=== PATIENT | male | born 1950 | race Caucasian/White ===

== ENCOUNTER 2017-06-04 10:58 | Day surgery (SDC) | payer OTHER ==
[~2017-06-04 10:58] MED LIST: Buffered Lidocaine 0.9% SYRIN* 5 ML/SYR SYRINGE INTRADERM ONE; Famotidine IV* 10 MG/ML 2 ML (20 mg) IV ONE; Metoclopramide TAB* 10 MG PO ONE
[2017-06-04] MEDS ORDERED: Metoclopramide TAB* 10 MG ONE (12:11)
[2017-06-04] MEDS ORDERED: Famotidine IV* 10 MG/ML 2 ML (20 mg) ONE (12:11)
[2017-06-04] MEDS ORDERED: Buffered Lidocaine 0.9% SYRIN* 5 ML/SYR SYRINGE ONE (12:19)
[2017-06-04] MEDS ORDERED: Lidocaine 2% PF * 5 ML VIAL ONE (13:18)
[2017-06-04] MEDS ORDERED: KETAMINE HCL* 50 MG/ML 10 ML VIAL ONE (13:18)
[2017-06-04] MEDS ORDERED: Propofol* 10 MG/ML 20 ML BTL IV PUSH ONE (13:18)
[2017-06-04] MEDS ORDERED: Midazolam* 1 MG/ML 2 ML VIAL (2 MG) ONE (13:18)
[2017-06-04] MEDS ORDERED: Dexamethasone IV* 4 MG/ML 1 ML (4 MG) ONE (13:18)
[2017-06-04] MEDS ORDERED: Ondansetron INJ* 2 MG/ML VIAL ONE (13:18)
[2017-06-04] MEDS ORDERED: fentaNYL* 50 MCG/ML 2 ML VIAL (100 MCG VIAL) ONE (13:18)
[2017-06-04] MEDS ORDERED: Oxymetazoline 0.05% NASAL SPR* 15 ML BTL ONE (13:39)
[2017-06-04] MEDS ORDERED: Lidocaine 1% MPF wEPI 200,000* 30 ML SDV ONE (13:39)
[2017-06-04] MEDS ORDERED: Lidocaine 4% TOPICAL* 50 ML TOP.SOLN ONE (13:39)
[2017-06-04] MEDS ORDERED: Mivacurium Chloride* 20 MG/10 ML VIAL IV ONE (13:45)
[2017-06-04] MEDS ORDERED: EPHEDrine (Pressors)* 50 MG/ML VIAL ONE (14:09)
[2017-06-04] MEDS ORDERED: Ondansetron INJ* 2 MG/ML VIAL IV PRN (14:12)
[2017-06-04] MEDS ORDERED: oxyCODONE/Acetamin 5/325 MG* TAB PO PRN (14:12)
[2017-06-04] MEDS ORDERED: Naloxone* 0.4 MG/ML 1 ML VIAL IV PRN (14:12)
[2017-06-04] MEDS ORDERED: fentaNYL* 50 MCG/ML 2 ML VIAL (100 MCG VIAL) IV PRN (14:12)
[2017-06-04 16:28] VITALS: BP 122/72
--- NOTE | 2017-06-05 01:09 | OP ---
DATE OF OPERATION: 06/04/17 - [facility] DATE OF : 54 SURGEON: Christiano Patricia MD ANESTHESIA: General endotracheal anesthesia. PRE-OP DIAGNOSIS: Chronic pansinusitis with nasal polyposis. POST-OP DIAGNOSIS: Chronic pansinusitis with nasal polyposis. OPERATIVE PROCEDURE: Endoscopic sinus surgery with nasal polypectomy, maxillary antrostomy, total ethmoidectomy. COMPLICATIONS: None. DISPOSITION: Good. SPECIMENS: Left and right sinus contents. I also took cultures from the maxillary sinuses bilaterally. DESCRIPTION OF PROCEDURE: The patient was taken to the operating room and placed in the supine position on the operating table. General anesthesia was induced and orotracheally intubated. His nose were packed bilaterally with cottonoids impregnated with oxymetazoline and 4% lidocaine. He was draped for the surgery. The packs were removed and he had obstructing polyps in his ostiomeatal units bilaterally and he had these in his middle turbinates. Lateral lepe were injected with 1% lidocaine with 1:100,000 epinephrine. I debrided the polyps with the Blakesley's and he had blockage of his maxillary sinuses. Once entered, pus drained which I suctioned. I used the debrider to widen the ostium and to allow flow. I irrigated the sinus out with saline. Polyps that were in the anterior and posterior ethmoid regions were removed. Polyps in the frontal recess were removed and went back and removed some polyps protruding from the sphenoid sinus. Ostium was opened. Stammberger Sinu-Foam was placed bilaterally. Patient tolerated the procedure well. No complications , transferred to the recovery room in stable condition. [id number]/[facility] #: [id number] [facility]
== END 2017-06-04 16:29 | disposition home or self-care (01) ==
LOC: OR 10:58
PROVIDERS: ATTEND Otolaryngology
DX: J32.4 Chronic pansinusitis (principal); J33.0 Polyp of nasal cavity; I73.00 Raynaud's syndrome without gangrene; K22.0 Achalasia of cardia; M19.90 Unspecified osteoarthritis, unspecified site; Z87.891 Personal history of nicotine dependence
CPT/HCPCS: 87070; 87073; 87076; 87077; 87186; 87205; 88305; A9270-GY; J1100; J2001; J2250; J2405; J2704; J3010

== ENCOUNTER 2018-09-06 06:19 | Day surgery (SDC) | payer MEDICARE, OTHER ==
[~2018-09-06 06:19] MED LIST changes: -Buffered Lidocaine 0.9% SYRIN* 5 ML/SYR SYRINGE INTRADERM ONE; +Buffered Lidocaine 1% SYRIN* 1 ML/SYRINGE INTRADERM ONE; -Famotidine IV* 10 MG/ML 2 ML (20 mg) IV ONE; -Metoclopramide TAB* 10 MG PO ONE
[2018-09-06] MEDS ORDERED: Midazolam* 1 MG/ML 2 ML VIAL (2 MG) ONE ×2 (07:20→07:36)
[2018-09-06 08:49] VITALS: BP 100/52
--- NOTE | 2018-09-06 09:39 | OP ---
DATE OF OPERATION/DATE OF DICTATION: 09/06/2018 - [facility] DATE OF : 1950. SURGEON: Dr. Matthew Roland. APPLICATIONS SALES CONSULTANT: None. ANESTHESIA: Topical with intravenous sedation. PRE-OP DIAGNOSIS: Cataract, left eye. POST-OP DIAGNOSIS: Cataract, left eye. OPERATIVE PROCEDURE: Phacoemulsification and cataract extraction with posterior chamber intraocular lens implant, left eye. COMPLICATIONS: None. BLOOD LOSS: None. DESCRIPTION OF PROCEDURE: The patient was brought to the operating room and received a small amount of intravenous sedation. A drop of Tetracaine was placed in his left eye. He was prepped and draped in the usual sterile fashion for ophthalmic surgery and attention was directed to the left eye where a speculum was placed. A paracentesis was created at the 5 o'clock position and 0.1 cc of 1 percent preservative-free Lidocaine was injected into the anterior chamber followed by DisCoVisc. The eye was digitally stabilized while a 2.75 mm keratome was used to create a triplanar clear corneal incision at the 3 o' clock position. A continuous curvilinear capsulorrhexis was created with a cystotome and Utrata forceps. BSS on a cannula was used to hydrodissect the lens from the capsule. Phacoemulsification was performed in a divide-and- conquer technique to create four fragments which were removed. Residual cortical material was removed with irrigation and aspiration. DisCoVisc was used to inflate the capsular bag and an AUOOTO 19.5 diopter lens was folded and inserted into the capsular bag. DisCoVisc was removed using irrigation and aspiration. BSS on a cannula was used to hydrate the corneal stroma and seal the wound. At the end of the case the pupil was round and the lens was centered. The eye was of normal pressure and the wound was water tight. The speculum was removed and topical Maxitrol ointment was placed on the surface of the eye. The eye was closed, patched and shielded and the patient was sent to the recovery room in stable condition with post operative instructions and follow-up appointment given. [id number]/[facility] #: [id number] MTDD
[2018-09-06] MEDS ORDERED: Lidocaine 1%* 5 ML VIAL ONE (13:52)
[2018-09-06] MEDS ORDERED: Phenylephrine OPHTH SOL 2.5%* 2 ML ONE (13:52)
[2018-09-06] MEDS ORDERED: Cyclopentolate 1% OPTH.SOL* 2 ML BTL ONE (13:52)
[2018-09-06] MEDS ORDERED: Neomycin/Polymy/Dex OPHTH.OIN* 3.5 GM ONE (13:52)
[2018-09-06] MEDS ORDERED: Tropicamide 1% OPTH.SOL* BTL ONE (13:52)
[2018-09-06] MEDS ORDERED: Ketorolac 0.5% OPHTH (NF) 0.5 % 5 ML BTL ONE (13:52)
[2018-09-06] MEDS ORDERED: Tetracaine 0.5% OPTH.SOL 4 ML* 1 DROP BTL ONE (13:52)
== END 2018-09-06 08:13 | disposition home or self-care (01) ==
LOC: OREAST 06:19
PROVIDERS: ATTEND Ophthalmology
DX: H25.12 Age-related nuclear cataract, left eye (principal); I73.00 Raynaud's syndrome without gangrene
CPT/HCPCS: A9270-GY; J2250; V2632

== ENCOUNTER 2018-09-13 11:24 | Day surgery (SDC) | payer MEDICARE, OTHER ==
[~2018-09-13 11:24] MED LIST changes: +Acetaminophen TAB* 325 MG PO PRN
[2018-09-13] MEDS ORDERED: fentaNYL* 50 MCG/ML 2 ML VIAL (100 MCG VIAL) ONE (13:01)
[2018-09-13] MEDS ORDERED: Midazolam* 1 MG/ML 2 ML VIAL (2 MG) ONE (13:02)
[2018-09-13] MEDS ORDERED: Neomycin/Polymy/Dex OPHTH.OIN* 3.5 GM ONE (13:25)
[2018-09-13] MEDS ORDERED: Tetracaine 0.5% OPTH.SOL 4 ML* 1 DROP BTL ONE (13:25)
[2018-09-13] MEDS ORDERED: Tropicamide 1% OPTH.SOL* BTL ONE (13:25)
[2018-09-13] MEDS ORDERED: Ketorolac 0.5% OPHTH (NF) 0.5 % 5 ML BTL ONE (13:25)
[2018-09-13] MEDS ORDERED: Cyclopentolate 1% OPTH.SOL* 2 ML BTL ONE (13:25)
[2018-09-13] MEDS ORDERED: Phenylephrine OPHTH SOL 2.5%* 2 ML ONE (13:25)
[2018-09-13] MEDS ORDERED: Lidocaine 1%* 5 ML VIAL ONE (13:25)
[2018-09-13 13:59] VITALS: BP 112/70
--- NOTE | 2018-09-13 16:37 | OP ---
DATE OF OPERATION: 09/13/18 [facility] DATE OF : 54 SURGEON: Dr. Matthew Roland. TWISTER FRAME TENDER: None. ANESTHESIA: Topical with intravenous sedation. PRE-OP DIAGNOSIS: Cataract, right eye. POST-OP DIAGNOSIS: Cataract, right eye. OPERATIVE PROCEDURE: Phacoemulsification and cataract extraction with posterior chamber intraocular lens implant, right eye. COMPLICATIONS: None. BLOOD LOSS: None. DESCRIPTION OF PROCEDURE: The patient was brought to the operating room and received a small amount of intravenous sedation. A drop of tetracaine was placed in his right eye. He was prepped and draped in the usual sterile fashion for ophthalmic surgery and attention was directed to the right eye where a speculum was placed. A paracentesis was created at the 11 o'clock position and 0.1 cc of 1 percent preservative-free Lidocaine was injected into the anterior chamber followed by DisCoVisc. The eye was digitally stabilized while a 2.75 mm keratome was used to create a triplanar clear corneal incision at the 9 o'clock position. A continuous curvilinear capsulorrhexis was created with a cystotome and Utrata forceps. BSS on a cannula was used to hydrodissect the lens from the capsule. Phacoemulsification was performed in a divide-and- conquer technique to create four fragments which were removed. Residual cortical material was removed with irrigation and aspiration. DisCoVisc was used to inflate the capsular bag and an AU00T0 19.5 diopter lens was folded and inserted into the capsular bag. DisCoVisc was removed using irrigation and aspiration. BSS on a cannula was used to hydrate the corneal stroma and seal the wound. At the end of the case the pupil was round and the lens was centered. The eye was of normal pressure and the wound was water tight. The speculum was removed and topical Maxitrol ointment was placed on the surface of the eye. The eye was closed, patched and shielded and the patient was sent to the recovery room in stable condition with post operative instructions and follow-up appointment given. [id number] #: [id number] [facility]
== END 2018-09-13 14:10 | disposition home or self-care (01) ==
LOC: OREAST 11:24
PROVIDERS: ATTEND Ophthalmology
DX: H25.11 Age-related nuclear cataract, right eye (principal); Z88.0 Allergy status to penicillin; Z88.8 Allergy status to other drugs, medicaments and biological substances; I73.00 Raynaud's syndrome without gangrene
CPT/HCPCS: A9270-GY; J2250; J3010; V2632